=== PATIENT | female | born 2000 | race African-American/Black ===

== ENCOUNTER → 2020-06-11 10:48 | Outpatient (BNVA) | payer OTHER, SELFPAY | PROVIDERS: Visit Provider Advanced Practice Midwife ==

== ENCOUNTER → 2020-06-12 09:43 | Outpatient (BNVA) | payer OTHER, SELFPAY | PROVIDERS: Visit Provider Advanced Practice Midwife | DX: N63.10 Unspecified lump in the right breast, unspecified quadrant (principal); Z45.89 Encounter for adjustment and management of other implanted devices | CPT/HCPCS: 11982 ==

== ENCOUNTER 2020-07-18 12:51 | Outpatient (REF) | payer OTHER, SELFPAY ==
--- NOTE | ~2020-07-18 | US_ITS ---
EXAMINATION: US DIAGNOSTIC ULTRASOUND BREAST, RIGHT CLINICAL INFORMATION: 19-year-old with chronic palpable fullness outer right breast for years. No significant changes. Additional palpable areas of interest 11:00 to 12:00 position noted at clinical exam. No known family history breast cancer. No discharge. COMPARISON: Targeted right breast ultrasound 05/03/2019. TECHNIQUE: Ultrasound right breast is targeted to the areas of clinical concern outer right breast as well as 11:00-12:00 position. Grayscale imaging and color Doppler are performed without and with harmonics. Patient is able to point to the areas of concern at time of imaging. FINDINGS: There is no focal suspicious finding. There is no cystic or solid mass, architectural abnormality, duct ectasia, or edema in the soft tissue planes. Results are discussed with the patient at time of visit. US/US breast RT limited IMPRESSION: Normal study. ASSESSMENT: BI-RADS 1: Negative RECOMMENDATION: Patient should be managed based on the clinical impression. If clinically indicated, further evaluation may be considered with surgical consult.
== END 2020-07-18 12:52 | disposition home or self-care (01) ==
LOC: HO.MAMMO 12:51
PROVIDERS: Visit Provider Advanced Practice Midwife
DX: N63.10 Unspecified lump in the right breast, unspecified quadrant (principal)
CPT/HCPCS: 76642

== ENCOUNTER → 2020-08-01 11:30 | Outpatient (BNVA) | payer OTHER, SELFPAY | PROVIDERS: Visit Provider Advanced Practice Midwife ==

== ENCOUNTER 2021-04-01 08:18 | Outpatient (REF) | payer OTHER, SELFPAY ==
[2021-04-02 01:31] LABS: CT PCR NOT DETECTED (Not Detect.)
[2021-04-02 01:32] LABS: NG PCR NOT DETECTED (Not Detect.)
[2021-04-02 12:04] LABS: BV Int Neg Control Negative (Negative); BV Int Pos Control Positive (Positive)
== END 2021-04-01 08:19 | disposition home or self-care (01) ==
LOC: HO.LAB 08:18
PROVIDERS: Visit Provider Advanced Practice Midwife
DX: R10.2 Pelvic and perineal pain (principal)
CPT/HCPCS: 81003; 81025; 87480; 87491; 87510; 87591; 87660

== ENCOUNTER 2021-04-17 11:07 | Outpatient (REF) | payer OTHER, SELFPAY ==
--- NOTE | ~2021-04-17 | US_ITS ---
EXAMINATION: US PELVIS CLINICAL INFORMATION: Pain COMPARISON: None TECHNIQUE: Ultrasound of the pelvis is performed using both transabdominal and transvaginal transducers along with Doppler. Transvaginal imaging is performed due to inadequate visualization transabdominally. FINDINGS: The uterus is anteverted and measures 8 x 3 x 5.6 cm in dimension. No focal uterine lesion is seen. Endometrial thickness is normal measuring 0.8 cm. There is a small amount of fluid in the endocervical canal. The ovaries are normal-appearing. The right ovary measures 2.9 x 4.6 x 1.8 cm. The left ovary measures 2.1 x 1.2 x 1.3 cm. There is no fluid in the pelvis. US/US pelvic and transvaginal IMPRESSION: Unremarkable exam.
== END 2021-04-17 11:08 | disposition home or self-care (01) ==
LOC: HO.US 11:07
PROVIDERS: Visit Provider Advanced Practice Midwife
DX: R10.2 Pelvic and perineal pain (principal)
CPT/HCPCS: 76830; 76856

== ENCOUNTER 2021-05-01 14:44 | Outpatient (REF) | payer OTHER, SELFPAY ==
[2021-05-02 06:39] LABS: CT PCR NOT DETECTED (Not Detect.); NG PCR NOT DETECTED (Not Detect.)
[2021-05-02 11:54] LABS: BV Int Neg Control Negative (Negative); BV Int Pos Control Positive (Positive)
== END 2021-05-01 14:45 | disposition home or self-care (01) ==
LOC: HO.LAB 14:44
PROVIDERS: Visit Provider Advanced Practice Midwife
DX: Z01.411 Encounter for gynecological examination (general) (routine) with abnormal findings (principal); R10.2 Pelvic and perineal pain; N89.8 Other specified noninflammatory disorders of vagina; I10 Essential (primary) hypertension; Z20.2 Contact with and (suspected) exposure to infections with a predominantly sexual mode of transmission
CPT/HCPCS: 87480; 87491; 87510; 87591; 87660; 88142

== ENCOUNTER 2022-05-05 15:03 | Outpatient (REF) | payer OTHER, SELFPAY ==
[2022-05-06 02:15] LABS: CT PCR DETECTED (Not Detect.); NG PCR NOT DETECTED (Not Detect.)
== END 2022-05-05 15:04 | disposition home or self-care (01) ==
LOC: HO.LNP 15:03
PROVIDERS: Visit Provider Advanced Practice Midwife
DX: Z01.419 Encounter for gynecological examination (general) (routine) without abnormal findings (principal)
CPT/HCPCS: 87491; 87591; 88142

== ENCOUNTER 2022-10-10 10:52 | Outpatient (REF) | payer OTHER, SELFPAY ==
[2022-10-11 09:17] LABS: CT PCR NOT DETECTED (Not Detect.); NG PCR NOT DETECTED (Not Detect.)
[2022-10-11 12:07] LABS: BV Int Neg Control Negative (Negative); BV Int Pos Control Positive (Positive)
== END 2022-10-10 10:53 | disposition home or self-care (01) ==
LOC: HO.LNP 10:52
PROVIDERS: PCP Nurse Practitioner Family; Visit Provider Advanced Practice Midwife
DX: R10.2 Pelvic and perineal pain (principal); N89.8 Other specified noninflammatory disorders of vagina; Z20.2 Contact with and (suspected) exposure to infections with a predominantly sexual mode of transmission
CPT/HCPCS: 0353U; 87480; 87510; 87660

== ENCOUNTER 2023-07-30 14:22 | Outpatient (REF) | payer OTHER, SELFPAY ==
[2023-07-30 16:17] LABS: HCG Quantitative < 2 mIU/mL
== END 2023-07-30 14:23 | disposition home or self-care (01) ==
LOC: HO.LAB 14:22
PROVIDERS: Visit Provider Advanced Practice Midwife
DX: N93.9 Abnormal uterine and vaginal bleeding, unspecified (principal)
CPT/HCPCS: 36415; 84702

== ENCOUNTER 2024-09-26 09:51 | Outpatient (AMB) | payer BC, SELFPAY ==
--- NOTE | 2024-09-26 09:53 | MHC.PC.OV ---
Vital Signs 09/26/24 09:58 Height 5 ft Weight 199 lb BMI 38.9 BP 156/81 H Respiration 14 Pulse 76 Pulse Source Pulse Oximeter Temp 98.0 F Temp Source Temporal Artery Scan Pulse Oximetry (%) 100 Oxygen Delivery Method Room Air Intake Visit Reasons: establish care [employer] Pumper Required: No Accompanied by: Self / Same As Patient Allergies doxycycline Allergy (Mild, Verified 09/26/24 10:10) rash fluconazole [From Diflucan] Allergy (Mild, Verified 09/26/24 10:10) Rash ibuprofen Allergy (Mild, Verified 09/26/24 10:10) Stomach Upset Medication List - Last Reconciled 09/26/24 by Rosemarie Montoya PA-C albuterol sulfate 90 mcg/actuation 0 mcg inhalation Tobacco use date assessed: 09/26/24 Dental Screening Dental Screen Date: 09/26/24 Did you have a dental visit in the last 12 months?: No Did you have a dental problem in the last 6 months where you did not have access to dental care?: No Was dental information given to patient?: Patient has dentist HPI establish care HPI Details The patient is a 24-year-old female presenting with the purpose of establishing primary healthcare, alongside addressing concerns about essential hypertension and suspected thyroid disorder. She was diagnosed with hypertension in 2020 and initially treated with Amlodipine and Hydrochlorothiazide. However, unpleasant side effects such as dizziness and head sensitivity led her to forgo these treatments without trying alternatives. Additionally, the patient cites a previous indication of thyroid dysfunction at [facility], but she has not pursued comprehensive follow-up evaluations. Her menstrual history is remarkable for severe dysmenorrhea with excessive bleeding episodes requiring significant periods of rest. The condition of hormonal dysregulation is further exacerbated by prominent emotional fluctuations, prompting her interest in evaluating hormone levels. Historical interventions with Nexplanon were ceased due to unsatisfactory outcomes. Breast concerns, including the presence of unexplained lumps, prompted imaging which returned negative for abnormalities. Recent cervical health was maintained, as evidenced by a normal Pap test completed in April 2022. 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 - Functional status: Manages daily tasks but period pains affect capabilities. [facility] Medical History (Updated 09/26/24 @ 10:28 by Rosemarie Montoya PA-C) Hormone imbalance Dysmenorrhea Class 2 obesity with body mass index (BMI) of 38.0 to 38.9 in adult Establishing care with new doctor, encounter for Pneumonia Ovarian cyst Dysplasia of cervix, low grade (OMAIRA 1) Hypertension Hx of migraine headaches Family History Father Hypertension Mother Hypertension Maternal Grandmother Hypertension Paternal Grandfather Stroke Diabetes Social History Housing: House Alcohol intake: current Alcohol intake frequency: holidays/special occasions only Alcohol type: wine Patient Tobacco Use Status: Never used Tobacco Substance Use Type: Marijuana service: No Current occupational status: employed 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 1. Little interest or pleasure in doing things: not at all 2. Feeling down, depressed, or hopeless: not at all 3. Trouble falling or staying asleep, or sleeping too much: not at all 4. Feeling tired or having little energy: not at all 5. Poor appetite or overeating: not at all 6. Feeling bad about yourself - or that you are a failure or have let yourself or your family down: not at all 7. Trouble concentrating on things, such as reading the newspaper or watching television: not at all 8. Moving or speaking so slowly that other people could have noticed. Or the opposite - being so fidgety or restless that you have been moving around a lot more than usual: not at all 9. Thoughts that you would be better off or of hurting yourself in some way: not at all Total score: 0 Depression Screening Interpretation: Negative Depression Screening Done: Yes 08654 - PHQ-9 Billing: Yes Source: Developed by Drs. Senthil Arguello, Samantha Rawls, Yong Zendejas and colleagues, with an educational hernan from [employer]. Thrive Questionnaire Date Thrive assessed: 09/26/24 I am a: Patient What is your living situation today?: I have a steady place to live Within the past 12 months, did the food you bought not last and you didn't have the money to get more?: Never true Within the past 12 months, did you worry whether your food would run out before you got money to buy more?: Never true Do you have trouble paying for medicines?: No Do you have trouble getting transportation to medical appointments?: No Do you have trouble paying your heating and electricity bill?: No Do you have trouble taking care of your child, family member or friend?: No Do you have trouble with day-to-day activities such as bathing, preparing meals, shopping, managing finances, etc.?: No Are you currently unemployed and looking for a job?: No Are you interested in more education?: No Please select the resources that you would like help with: None THRIVE Score: 0 AUDIT C Alcohol Use Questionnaire (AUDIT-C) 1. How often do you have a drink containing alcohol?: Monthly or less 2. How many drinks containing alcohol do you have on a typical day when you are drinking?: 1 or 2 3. How often do you have six or more drinks on one occasion?: Never Total Score: 1 Score Reviewed/Action Taken: No ALYSON-7 AMB Questionnaire ALYSON-7 Date ALYSON - 7 assessed: 09/26/24 Feeling nervous, anxious, or on edge: 0 = Not at all Not being able to stop or control worryin = Not at all Worrying too much about different things: 0 = Not at all Trouble relaxin = Not at all Being so restless that it is hard to sit still: 0 = Not at all Becoming easily annoyed or irritable: 0 = Not at all Feeling afraid as if something awful might happen: 0 = Not at all Total ALYSON-7 score (0-4 normal; 5-9 mild; 10-14 moderate; 15-21 severe): 0 Source: Developed by Drs. Senthil Arguello, Samantha Rawls, Yong Zendejas and colleagues, with an educational hernan from [employer]. ALYSON-7 Assessment Billing ALYSON-7 Assessment Tool: ALYSON-7 Assessment 38633 Review of Systems Const Details: - Cardiovascular: Reports sensitivity leading to head disturbances while on Amlodipine. Reports dizziness with Hydrochlorothiazide. - Endocrine: Denies any palpable thyroid abnormalities or changes in neck. - Reproductive: Reports severe dysmenorrhea, heavy flow during menstruation, and bi-monthly mood disturbances. - Breast: Denies current palpable lumps following negative ultrasounds. - General: No mentions of unintentional weight loss or fatigue. Physical exam (Primary Care) Vital Signs: Last Vital Signs Temp 98.0 F 09/26/24 09:58 Pulse 76 09/26/24 09:58 Resp 14 09/26/24 09:58 BP 156/81 H 09/26/24 09:58 Pulse Ox 100 09/26/24 09:58 Oxygen Delivery Method Room Air 09/26/24 09:58 Care Plan Goal for BP management: <130/90 patient will be started on 10 mg of lisinopril and return in 1 month for blood pressure check BMI result Body Mass Index 38.9 BMI Assessment/Plan discussion: High BMI High, discussed plan: lifestyle, weight reduction, dietary, physical activity and alcohol moderation Tobacco/Smoking Status: Tobacco use Status Tobacco use date assessed 09/26/24 09/26/24 09:58 Patient Tobacco Use Status Never used Tobacco 09/26/24 10:03 Tobacco use type 09/26/24 10:03 e-Cigarette/Vaping Use 09/26/24 10:03 PHQ-9: PHQ-9 Score PHQ-9: Total score 0 09/26/24 09:58 Depression Screening Interpretation: Negative Thrive Assessment: Date of Thrive Assessment Date Thrive assessed 09/26/24 09/26/24 09:58 Const Other: Appearance: Alert. Oriented X3. No acute distress. Head: Normal external exam. Normocephalic. Atraumatic. Eyes: Pupils are equal, round, and reactive to light. Extraocular movements intact. Conjunctiva and sclera normal. Eyelids normal. Ears: External auditory canal normal. Tympanic membranes normal. Throat: Pharynx normal. Uvula midline. Moist mucous membranes. Neck: Normal inspection. Neck supple. Full range of motion. No adenopathy. Thyroid Normal. No meningeal signs. No neck mass noted. Cardiovascular: Normal heart rate and rhythm. Heart sound normal. No murmurs noted. Pulses normal throughout. Respiratory: No respiratory distress. Painless inspiration. Breath sounds normal. No wheezes/rales/rhonchi noted. Chest nontender. No accessory muscle usage noted or decreased air movement noted. Abdomen: Soft and nontender. Back: Full range of motion noted. Skin: Skin warm and dry. Normal skin color. Normal skin turgor. Rash noted on neck, sometimes forming due to heat or humidity. Extremities: No lower extremity edema. Extremities exhibit normal range of motion. Extremities nontender. Neuro: Oriented X 3. No motor deficit. No sensory deficit. Reflexes normal. Results Reviewed Results Reviewed: - Labs: CBP, CMP, inflammatory markers, hemoglobin A1c, lipid and liver panel, magnesium, B12, folate, vitamin D, and thyroid function tests ordered. - Hormone Tests: Progesterone, prolactin, testosterone, LH, estrogen, and antim?llerian hormone level tests ordered. Coding Level of Care Code New Pt Level 4 (17677) Complex EM visit Add On G2211 Diagnoses Establishing care with new doctor, encounter for Z76.89 Hypertension I10 Class 2 obesity with body mass index (BMI) of 38.0 to 38.9 in adult E66.812; Z68.38 Dysmenorrhea N94.6 Hormone imbalance E34.9 Additional Codes PHQ-9 - 58006 - PHQ-9 Billing: Yes ([id number]) ALYSON-7 Assessment Billing - ALYSON-7 Assessment Tool: ALYSON-7 Assessment 04013 ([id number]) Assessment & Plan Assessment & Plan (1) Establishing care with new doctor, encounter for: Code(s): Z76.89 - Persons encountering health services in other specified circumstances Category: Medical (2) Hypertension: Code(s): I10 - Essential (primary) hypertension Category: Medical Plan: The patient's hypertension will be managed with Lisinopril 10 mg taken daily. Lisinopril is expected to mitigate side effects previously experienced with Amlodipine and Hydrochlorothiazide. A follow-up appointment in one month will evaluate effectiveness, and hypertension monitoring will be guided through home blood pressure readings, taken two hours post-medication ingestion. (3) Class 2 obesity with body mass index (BMI) of 38.0 to 38.9 in adult: Code(s): E66.812 - Obesity, class 2; Z68.38 - Body mass index [BMI] 38.0-38.9, adult Category: Medical Plan: Patient to improve her diet and exercise regimen. Condition is chronic and stable will continue to monitor. (4) Dysmenorrhea: Code(s): N94.6 - Dysmenorrhea, unspecified Category: Medical Plan: The patient is directed to discuss possible interventions for menstrual distress with her paper sales representative. Evaluations for potential hormonal imbalances that may contribute to her symptoms are initiated through ordered hormone panels. (5) Hormone imbalance: Code(s): E34.9 - Endocrine disorder, unspecified Category: Medical Plan: Hormone level testing is proposed to identify any imbalances contributing to reported symptoms, guiding future therapeutic strategies. Plan Plan Patient was informed and verbally consented to the use of an ambient scribe for clinic note documentation during this visit. 1. Essential Hypertension The patient's hypertension will be managed with Lisinopril 10 mg taken daily. Lisinopril is expected to mitigate side effects previously experienced with Amlodipine and Hydrochlorothiazide. A follow-up appointment in one month will evaluate effectiveness, and hypertension monitoring will be guided through home blood pressure readings, taken two hours post-medication ingestion. 2. Suspected Thyroid Disorder Comprehensive thyroid function testing is ordered to follow up on concerns previously identified at [facility]. Results will guide any further care needed and refine the diagnosis. 3. Dysmenorrhea The patient is directed to discuss possible interventions for menstrual distress with her paper sales representative. Evaluations for potential hormonal imbalances that may contribute to her symptoms are initiated through ordered hormone panels. 4. Hormonal Imbalance Hormone level testing is proposed to identify any imbalances contributing to reported symptoms, guiding future therapeutic strategies. 5. History Of Breast Abnormality Monitor for any recurrence of symptoms, with continued emphasis on patient awareness and regular self-exams. Follow-up contingent on symptomatic changes. During this visit, I discussed with the patient the ongoing management of her essential hypertension, emphasizing the rationale for initiating Lisinopril while considering past adverse reactions to alternative therapies. Benefits of Lisinopril and its specific mechanism to avoid electrolyte imbalances were highlighted. For her thyroid concerns, I have ordered pertinent tests to investigate any dysfunction post-initial encounter at [facility]. Our discussion embraced her menstrual experiences and associated wellness concerns, promoting consultation with her paper sales representative to explore non-hormonal solutions. Hormonal evaluations were proposed to delineate the cause of her emotional variability and planning for continued breast health surveillance was reinforced, given the prior normal ultrasound findings. The importance of controlled follow-up and assessment after lab results and cued medication response was stressed. Orders: Orders C Reactive Protein Today Z00.00 - Encounter for general adult medical examination without abnormal findings Complete Blood Count Auto Diff Today Z00.00 - Encounter for general adult medical examination without abnormal findings Hemoglobin A1c Today Z. - Encounter for general adult medical examination without abnormal findings Liver Panel Today Z. - Encounter for general adult medical examination without abnormal findings Magnesium Today Z. - Encounter for general adult medical examination without abnormal findings Vitamin D 25-OH Total Today Z. - Encounter for general adult medical examination without abnormal findings Anti-Mullerian Hormone-Female Today Z.00 - Encounter for general adult medical examination without abnormal findings Lutenizing Hormone Today Z. - Encounter for general adult medical examination without abnormal findings Prolactin Today Z. - Encounter for general adult medical examination without abnormal findings Comprehensive [place]. Panel Fast Today Z. - Encounter for general adult medical examination without abnormal findings Erythrocyte Sedimentation Rate Today Z. - Encounter for general adult medical examination without abnormal findings Lipid Panel Today Z. - Encounter for general adult medical examination without abnormal findings Vitamin B12 and Folate Today Z. - Encounter for general adult medical examination without abnormal findings TSH reflex Free T4 Today Z. - Encounter for general adult medical examination without abnormal findings Estrogen Today Z. - Encounter for general adult medical examination without abnormal findings Testosterone, Total Today Z. - Encounter for general adult medical examination without abnormal findings Progesterone Today Z.00 - Encounter for general adult medical examination without abnormal findings Medications: New betamethasone dipropionate 0.05% 1 appl topical BID PRN 45 grams 3RF skin irritation lisinopril 10 mg PO DAILY 30 tabs 0RF I10 - Essential (primary) hypertension Patient Instructions: - Take Lisinopril 10 mg daily. Try to take it at the same time each day. - Use a home blood pressure cuff to check blood pressure two hours after medication once a day, occasionally noting results. - Go for thyroid function blood tests as soon as possible, on an empty stomach. - Schedule a follow-up appointment in one month. - Continue to monitor for any new breast changes, and consult a healthcare provider if changes occur. - Discuss dysmenorrhea and possible management options with your paper sales representative. - Keep track of any changes in menstrual symptoms or hormone levels after test results are reviewed. - Drink plenty of water when fasting for blood tests.
[2024-09-26 09:58] VITALS: BP 156/81; PULSE 76; RESP 14; TEMP 36.7; O2SAT 100; BMI 38.9
== END 2024-09-26 10:23 | disposition home or self-care (01) ==
LOC: HO.HMCSH 09:51
PROVIDERS: PCP Nurse Practitioner Family; Visit Provider Physician Assistant Medical
DX: Z76.89 Persons encountering health services in other specified circumstances (principal); I10 Essential (primary) hypertension; E66.812 Obesity, class 2; Z68.38 Body mass index [BMI] 38.0-38.9, adult; N94.6 Dysmenorrhea, unspecified; E34.9 Endocrine disorder, unspecified

== ENCOUNTER → 2024-09-26 09:51 | Outpatient (BNVA) | payer SELFPAY | PROVIDERS: PCP Nurse Practitioner Family; Visit Provider Physician Assistant Medical | DX: Z76.89 Persons encountering health services in other specified circumstances (principal); I10 Essential (primary) hypertension; E66.812 Obesity, class 2; Z68.38 Body mass index [BMI] 38.0-38.9, adult; N94.6 Dysmenorrhea, unspecified; E34.9 Endocrine disorder, unspecified | CPT/HCPCS: 96127 ==

== ENCOUNTER 2025-01-09 12:36 | Outpatient (REF) | payer OTHER, SELFPAY ==
[2025-01-09 13:01] LABS: MANUAL DIFF FLAG NO
[2025-01-09 13:23] LABS: Hematocrit 34.9 % (37.0-47.0); Hemoglobin 12.4 g/dl (12.0-16.0); Imm Gran Abs Auto 0.01 X10*3/uL (0.00-0.03); Imm Gran Pct Auto 0.2 % (0.0-0.4); Lymphocytes Absolute Auto 2.1 X10*3/uL (1.2-4.9); Mean Corpuscular HGB Conc 35.5 g/dl (31.0-35.0); Mean Corpuscular Hemoglobin 28.2 pg (27.0-33.0); Mean Corpuscular Volume 79.5 fL (80.0-98.0); NRBC Abs Auto 0.000 X10*3/uL (0.0-0.012); NRBC Pct Auto 0.0 /100WBC (0.0-0.2); Platelet Count 223 X10*3/uL (160-400); Red Blood Count 4.39 X10*6/uL (4.20-5.50); White Blood Count 5.7 X10*3/uL (4.8-10.8)
[2025-01-09 13:45] LABS: Hemoglobin A1C 101.5377 umol/L; Total Hemoglobin (HGBA1C) 3235.3978 umol/L
[2025-01-09 14:01] LABS: Alanine Aminotransferase 31 U/L (0-31); Albumin Level 3.9 g/dL (3.5-5.0); Alkaline Phosphatase 52 U/L (39-117); Anion Gap 11 (12-20); Aspartate Amino Transferase 28 U/L (5-31); Blood Urea Nitrogen 7 mg/dL (9-16); Calcium 8.7 mg/dL (8.4-10.2); Carbon Dioxide 23 mmol/L (22-29); Chloride 109 mmol/L (96-108); Cholesterol 164 mg/dL (<200); Estimated Glomerular Filt Rate > 60; HDL Cholesterol 55 mg/dL (>40); Magnesium 1.5 mg/dL (1.6-2.6); Potassium 3.7 mmol/L (3.3-5.1); Sodium 139 mmol/L (135-145); Total Protein 6.7 g/dL (6.5-8.0); Triglycerides 56 mg/dL (<150)
[2025-01-09 14:24] LABS: Folate 10.5 ng/mL (> or = 4.0); Vitamin B12 817 pg/mL (200-900)
[2025-01-12 15:52] LABS: Anti-Mullerian Hormone-Female 1.47 ng/mL (0.69-13.39)
== END 2025-01-09 12:37 | disposition home or self-care (01) ==
LOC: HO.LAB 12:36
PROVIDERS: PCP Physician Assistant Medical; Visit Provider Physician Assistant Medical
DX: Z00.00 Encounter for general adult medical examination without abnormal findings (principal); D64.9 Anemia, unspecified; Z13.21 Encounter for screening for nutritional disorder; Z13.1 Encounter for screening for diabetes mellitus; Z13.6 Encounter for screening for cardiovascular disorders
CPT/HCPCS: 36415; 80053; 80061; 80076; 82166; 82248; 82306; 82607; 82672; 82746; 83002; 83036; 83735; 84144; 84146; 84403; 84443; 85025; 85652; 86140

== ENCOUNTER 2025-01-30 14:25 | Outpatient (AMB) | payer OTHER, SELFPAY ==
--- NOTE | 2025-01-30 14:19 | MHC.PC.OV ---
Vital Signs 01/30/25 14:20 Height 5 ft Weight 194 lb BMI 37.9 BP 124/64 Respiration 14 Pulse 66 Pulse Source Pulse Oximeter Temp 98.4 F Temp Source Temporal Artery Scan Pulse Oximetry (%) 96 Oxygen Delivery Method Room Air Intake Visit Reasons: BP Check/ Headaches Licsw Required: No Accompanied by: Self / Same As Patient Allergies doxycycline Allergy (Mild, Verified 01/30/25 14:42) rash fluconazole (From Diflucan) Allergy (Mild, Verified 01/30/25 14:42) Rash ibuprofen Allergy (Mild, Verified 01/30/25 14:42) Stomach Upset Medication List - Last Reconciled 01/30/25 by Rosemarie Montoya PA-C albuterol sulfate 90 mcg/actuation 0 mcg inhalation cholecalciferol (vitamin D3) 25 mcg PO DAILY lisinopril 10 mg PO DAILY Tobacco use date assessed: 01/30/25 Dental Screening Dental Screen Date: 09/26/24 HPI BP Check/ Headaches HPI Details The patient is a 24-year-old female presenting with headaches. She describes the headaches as a constant discomfort, with some days being more severe, causing nausea and affecting her ability to work. The headaches are worsened by heat exposure during her job, despite efforts to stay hydrated and maintain electrolyte balance. The patient has a history of hypertension, with consistently high readings at home, although office measurements are normal. She is on lisinopril, prescribed after elevated blood pressure was noted previously. Laboratory tests showed mild anemia and low magnesium, which have been managed with dietary changes. Other lab results were normal, except for a slightly elevated testosterone level. 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 [facility] Medical History (Updated 01/30/25 @ 16:32 by Rosemarie Montoya PA-C) Anemia Left ankle pain Left knee pain Frequent headaches Chronic anemia Low magnesium level Cervical cancer screening (~05/06/22) Hormone imbalance Dysmenorrhea Class 2 obesity with body mass index (BMI) of 38.0 to 38.9 in adult Establishing care with new doctor, encounter for Pneumonia Ovarian cyst Dysplasia of cervix, low grade (OMAIRA 1) Hypertension Hx of migraine headaches Family History Father Hypertension Mother Hypertension Maternal Grandmother Hypertension Paternal Grandfather Stroke Diabetes Social History Housing: House Alcohol intake: current Alcohol intake frequency: holidays/special occasions only Alcohol type: wine Patient Tobacco Use Status: Never used Tobacco Substance Use Type: Marijuana service: No Current occupational status: employed 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 1. Little interest or pleasure in doing things: not at all 2. Feeling down, depressed, or hopeless: not at all 3. Trouble falling or staying asleep, or sleeping too much: not at all 4. Feeling tired or having little energy: not at all 5. Poor appetite or overeating: not at all 6. Feeling bad about yourself - or that you are a failure or have let yourself or your family down: not at all 7. Trouble concentrating on things, such as reading the newspaper or watching television: not at all 8. Moving or speaking so slowly that other people could have noticed. Or the opposite - being so fidgety or restless that you have been moving around a lot more than usual: not at all 9. Thoughts that you would be better off or of hurting yourself in some way: not at all Total score: 0 Depression Screening Interpretation: Negative Depression Screening Done: Yes 99537 - PHQ-9 Billing: Yes Source: Developed by Drs. Senthil Arguello, Samantha Rawls, Yong Zendejas and colleagues, with an educational hernan from [employer] Thrive Questionnaire Date Thrive assessed: 09/26/24 I am a: Patient What is your living situation today?: I have a steady place to live Within the past 12 months, did the food you bought not last and you didn't have the money to get more?: Never true Within the past 12 months, did you worry whether your food would run out before you got money to buy more?: Never true Do you have trouble paying for medicines?: No Do you have trouble getting transportation to medical appointments?: No Do you have trouble paying your heating and electricity bill?: No Do you have trouble taking care of your child, family member or friend?: No Do you have trouble with day-to-day activities such as bathing, preparing meals, shopping, managing finances, etc.?: No Are you currently unemployed and looking for a job?: No Are you interested in more education?: No Please select the resources that you would like help with: None THRIVE Score: 0 AUDIT C Alcohol Use Questionnaire (AUDIT-C) 1. How often do you have a drink containing alcohol?: Monthly or less 2. How many drinks containing alcohol do you have on a typical day when you are drinking?: 1 or 2 3. How often do you have six or more drinks on one occasion?: Never Total Score: 1 Score Reviewed/Action Taken: No ALYSON-7 AMB Questionnaire ALYSON-7 Date ALYSON - 7 assessed: 09/26/24 Feeling nervous, anxious, or on edge: 0 = Not at all Not being able to stop or control worryin = Not at all Worrying too much about different things: 0 = Not at all Trouble relaxin = Not at all Being so restless that it is hard to sit still: 0 = Not at all Becoming easily annoyed or irritable: 0 = Not at all Feeling afraid as if something awful might happen: 0 = Not at all Total ALYSON-7 score (0-4 normal; 5-9 mild; 10-14 moderate; 15-21 severe): 0 Source: Developed by Drs. Senthil Arguello, Samantha Rawls, Yong Zendejas and colleagues, with an educational hernan from [employer] ALYSON-7 Assessment Billing ALYSON-7 Assessment Tool: ALYSON-7 Assessment 61492 Review of Systems Const Details: - Neurological: Reports constant headaches with nausea and visual disturbances. Denies other neurological symptoms. - Cardiovascular: Reports consistently high blood pressure readings at home. Denies chest pain or palpitations. All systems reviewed & are unremarkable except as noted in HPI and below Physical exam (Primary Care) Vital Signs: Last Vital Signs Temp 98.4 F 01/30/25 14:20 Pulse 66 01/30/25 14:20 Resp 14 01/30/25 14:20 BP 124/64 01/30/25 14:20 Pulse Ox 96 01/30/25 14:20 Oxygen Delivery Method Room Air 01/30/25 14:20 Care Plan Goal for BP management: <140/90 at Goal BMI result Body Mass Index 37.9 BMI Assessment/Plan discussion: High BMI High, discussed plan: lifestyle, weight reduction, dietary, physical activity, alcohol moderation and other Tobacco/Smoking Status: Tobacco use Status Tobacco use date assessed 01/30/25 01/30/25 14:21 Patient Tobacco Use Status Never used Tobacco 01/30/25 14:21 Tobacco use type 12/29/24 09:16 PHQ-9: PHQ-9 Score PHQ-9: Total score 0 01/30/25 14:35 Depression Screening Interpretation: Negative Thrive Assessment: Date of Thrive Assessment Date Thrive assessed 09/26/24 01/30/25 14:21 Const Other: Appearance: Alert. Oriented X3. No acute distress. Head: Normal external exam. Normocephalic. Atraumatic. Eyes: Pupils are equal, round, and reactive to light. Extraocular movements intact. Conjunctiva and sclera normal. Eyelids normal. Throat: Pharynx normal. Uvula midline. Moist mucous membranes. Neck: Normal inspection. Neck supple. Full range of motion. Cardiovascular: Normal heart rate and rhythm. Heart sound normal. No murmurs noted. Pulses normal throughout. Respiratory: No respiratory distress. Painless inspiration. Breath sounds normal. No wheezes/rales/rhonchi noted. Chest nontender. No accessory muscle usage noted or decreased air movement noted. Back: Full range of motion noted. Skin: Skin warm and dry. Normal skin color. Normal skin turgor. No rashes/lesions/lacerations noted. Extremities: Extremities exhibit normal range of motion. Neuro: Oriented X 3. No motor deficit. No sensory deficit. Reflexes normal. Results Reviewed Results Reviewed: - Labs: CBC showed mild anemia with hemoglobin at 35. Magnesium was low at 1.5. Testosterone slightly elevated at 57. Other labs including kidney function, ESR, CRP, thyroid, and estrogen were normal. Coding Level of Care Code Est Pt Level 4 (03406) Complex EM visit Add On G2211 Diagnoses Frequent headaches R51.9 Hypertension I10 Anemia D64.9 Additional Codes ALYSON-7 Assessment Billing - ALYSON-7 Assessment Tool: ALYSON-7 Assessment 56216 ([id number]) PHQ-9 - 95912 - PHQ-9 Billing: Yes ([id number]) Assessment & Plan Assessment & Plan (1) Frequent headaches: Code(s): R51.9 - Headache, unspecified Category: Medical Plan: Referral to neurology for further evaluation of headaches is planned, with a CT scan of the brain ordered to exclude structural causes. Meloxicam is prescribed for symptom management until the neurology appointment. (2) Hypertension: Code(s): I10 - Essential (primary) hypertension Category: Medical Plan: The patient will return for a follow-up to reassess blood pressure, continuing current lisinopril therapy in the interim. (3) Anemia: Code(s): D64.9 - Anemia, unspecified Category: Medical Plan: Mild anemia is being monitored with dietary changes to improve magnesium levels. Plan Plan Patient was informed and verbally consented to the use of an ambient scribe for clinic note documentation during this visit. 1. Headache Referral to neurology for further evaluation of headaches is planned, with a CT scan of the brain ordered to exclude structural causes. Meloxicam is prescribed for symptom management until the neurology appointment. 2. Hypertension The patient will return for a follow-up to reassess blood pressure, continuing current lisinopril therapy in the interim. 3. Anemia Mild anemia is being monitored with dietary changes to improve magnesium levels. I discussed with the patient the plan to refer her to a neurologist for her headaches and the rationale for ordering a CT scan to rule out structural causes. We also talked about continuing her current blood pressure medication and the importance of follow-up visits to monitor her hypertension. I explained the prescription of meloxicam for headache management and dietary adjustments for her mild anemia. Orders: Orders CT head/brain wo IV con Today R51.9 - Headache, unspecified PT Evaluation and Treatment Today M25.562 - Pain in left knee, M25.572 - Pain in left ankle and joints of left foot XR knee LT 4V Today M25.562 - Pain in left knee, M25.572 - Pain in left ankle and joints of left foot XR ankle LT min 3V Today M25.562 - Pain in left knee, M25.572 - Pain in left ankle and joints of left foot Referrals Neurology Referral R51.9 - Headache, unspecified Medications: New meloxicam 15 mg PO DAILY 90 tabs 3RF metoclopramide HCl (Reglan) 10 mg PO Q6H PRN 90 tabs 3RF nausea and vomiting prednisone 40 mg (2 x 20 mg) PO DAILY 10 tabs 0RF 5 days sumatriptan succinate take 1 tab at onset of headache; if no relief may repeat 1 tab after at least 2 hrs; max = 4 tabs/24 hr PO 90 tabs 0RF amoxicillin-pot clavulanate 875-125 mg 1 tab PO BID 20 tabs 0RF 10 days Refilled lisinopril 10 mg PO DAILY 90 tabs 3RF I10 - Essential (primary) hypertension Patient Instructions: - Take meloxicam as prescribed for headache relief. - Continue current blood pressure medication and monitor readings at home. - Follow dietary recommendations to address anemia and low magnesium levels. - Return for follow-up visit to reassess blood pressure.
[2025-01-30 14:20] VITALS: BP 124/64; PULSE 66; RESP 14; TEMP 36.9; O2SAT 96; BMI 37.9
== END 2025-01-30 15:03 | disposition home or self-care (01) ==
LOC: HO.HMCSH 14:25
PROVIDERS: PCP Physician Assistant Medical; Visit Provider Physician Assistant Medical
DX: R51.9 Headache, unspecified (principal); I10 Essential (primary) hypertension; D64.9 Anemia, unspecified

== ENCOUNTER → 2025-01-30 14:25 | Outpatient (BNVA) | payer OTHER, SELFPAY | PROVIDERS: PCP Physician Assistant Medical; Visit Provider Physician Assistant Medical | DX: I10 Essential (primary) hypertension (principal); R51.9 Headache, unspecified; D64.9 Anemia, unspecified; M25.562 Pain in left knee; M25.572 Pain in left ankle and joints of left foot | CPT/HCPCS: 96127 ==

== ENCOUNTER 2025-02-01 13:32 | Outpatient (AMB) | payer OTHER, SELFPAY ==
--- NOTE | 2025-02-01 13:44 | A.OFFVIS_ITS ---
Vital Signs 02/01/25 13:45 Height 5 ft Weight 193 lb BMI 37.7 BP 120/70 Blood Pressure Location Rt brachial Position Sitting Pulse 97 Pulse Source Pulse Oximeter Pulse Oximetry (%) 97 Oxygen Delivery Method Room Air Intake Visit Reasons: INP-Headache Account Executive Required: No Accompanied by: Self / Same As Patient Allergies doxycycline Allergy (Mild, Verified 02/01/25 13:50) rash fluconazole (From Diflucan) Allergy (Mild, Verified 02/01/25 13:50) Rash ibuprofen Allergy (Mild, Verified 02/01/25 13:50) Stomach Upset Medication List - Last Reconciled 02/01/25 by Kate Rutherford, [employer] albuterol sulfate 90 mcg/actuation 0 mcg inhalation amoxicillin-pot clavulanate 875-125 mg 1 tab PO BID 10 days cholecalciferol (vitamin D3) 25 mcg PO DAILY lisinopril 10 mg PO DAILY meloxicam 15 mg PO DAILY metoclopramide HCl (Reglan) 10 mg PO Q6H PRN prednisone 40 mg (2 x 20 mg) PO DAILY 5 days sumatriptan succinate take 1 tab at onset of headache; if no relief may repeat 1 tab after at least 2 hrs; max = 4 tabs/24 hr PO HPI Comments Details: Right-handed 24-year-old female presents for new patient evaluation of headache disorder. PMH is notable for hypertension, obesity, ovarian cysts, anemia due to menorrhagia, and occasional constipation, vitamin-D deficiency, currently on ABT for PNA. Pt reports she started having headaches during her pre-teen years. She was initially told that she was reading too much and needed glasses. She eventually got glasses, but wearing them sometimes makes her headaches worse. Over time, the migraine has progressed in severity and frequency to the point where, since the beginning of 2024, she has been having almost daily migraine headache attacks. She states she stopped tolerating OTC Tylenol and NSAIDs, and Excedrin is no longer effective. She has had to miss work on multiple occasions, especially during her menstrual cycle. She has not previously seen a neurologist for her headache symptoms. Review of systems notable for: * Neurologic: Reports chronic migraines. Occasional shooting pain up either arm if lifting something heavy. * Musculoskeletal: Reports left shoulder discomfort and longstanding non- radiating neck tightness with periodic pain. Left knee and left ankle pain- has just recently been referred to PT for this. * Cardiovascular: Denies symptoms of chest pain or palpitations, although reported palpitations during migraine episodes. * Respiratory: Reports history of pneumonia, currently under treatment. * Gastrointestinal: Occasional constipation, history of GI intolerance with ibuprofen. * Genitourinary: Denies current symptoms, chronic cyclic exacerbation of migraines noted with menstruation. * Sleep: Reports , snoring, daytime sleepiness, and insomnia. * General: Reports fatigue, generalized body aches. Pertinent denials include: bruxism, kidney stones, clotting d/o's, HLD, mood d/o, weakness, recurrent numbness and tingling, that your bag that is yours or sickle cell disease. Lifestyle considerations * Typical nutrition intake: tries to eat * Typical fluid intake per day: 2 liters of water per day, including electrolytes * Caffeine use: 1-2 cups of coffee or caffeine powder per week * Sleep routine: Usual bedtime: varies based on the headache- on the headache day, she will fall asleep earlier, but then have insomnia on the days she does not have a headache. Usual wake-up time: 6-7 am * Sleep difficulties: Endorses: Snoring, Excessive daytime sleepiness, Fatigue, Apneas, Gasping Arousals, Restless sleep * Substance use: Occasional alcohol. Previous marijuana for sleep and headaches- recently stopped. 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 Family planning: in the near future. Headache questionnaire * Types of headache disorders: 1 * Age/time of onset: pre-teen * Preceding causes: initially, she was told she needed glasses * Previous work-up: none * Eye Exams: [facility]- next appt next week Typical headache characteristics * Prodrome symptoms: head [place] * Aura: vision changes, sees white circles, difficulty focusing her eyes, aching in the left eye * Pain intensity: [id number] * Location, quality, characteristics: a pulsating pain which progresses to squeezing, and moves into the left eye, islam, ear, occipital region, and neck. * Associated symptoms: photophobia, if-severe phonophobia, allodynia, nausea, vomiting, if severe-not right in space dizziness/lightheadedness, fatigue, cognitive difficulties, activity intolerance, * Atypical associated symptoms: watery eye, fast heartbeat * Postdrome: lingering symptoms * Aggravating factors during this headache: bending over, going down stairs * Triggers that provoke this headache: menstruation, heat * Time of day this headache usually occurs: Typically at the end of the day. However, the more severe attacks typically occur upon awakening in the morning. * Duration and Frequency: typically 2 days, but 3-4 days during her menstrual cycle. more headache days than not in a month * Headache impact on the patient's quality of life: severe- missing work and personal obligations Current treatment strategies * Current acute medication use/interventions: Excedrin, Dannielle, smelling alcohol * Current preventative medication use: None * Current non-pharmacological interventions: a mild headache may be alleviated with exercise. Previous treatment trials: * Ibuprofen, Tylenol- caused GI upset. * Excedrin up to 8 tabs per day- no longer effective PFSH Medical History (Updated 02/01/25 @ 14:56 by LUCIO Murcia) Anemia Left ankle pain Left knee pain Frequent headaches Chronic anemia Low magnesium level Cervical cancer screening (~05/06/22) Hormone imbalance Dysmenorrhea Class 2 obesity with body mass index (BMI) of 38.0 to 38.9 in adult Establishing care with new doctor, encounter for Pneumonia Ovarian cyst Dysplasia of cervix, low grade (OMAIRA 1) Hypertension Hx of migraine headaches Family History Father Hypertension Mother Hypertension Maternal Grandmother Hypertension Paternal Grandfather Stroke Diabetes Social History Housing: House Alcohol intake: current Alcohol intake frequency: holidays/special occasions only Alcohol type: wine Patient Tobacco Use Status: Never used Tobacco Substance Use Type: Marijuana service: No Current occupational status: employed 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 Sexual orientation: Straight/Heterosexual Gender identity: Female Cognitive needs: No Hearing needs: No Vision needs: Yes (rx glasses) Female Reproductive History Menstrual Age of Menarche: 8 Physical Exam Vital Signs: Last Vital Signs Pulse 97 02/01/25 13:45 BP 120/70 02/01/25 13:45 Pulse Ox 97 02/01/25 13:45 Oxygen Delivery Method Room Air 02/01/25 13:45 BMI result Body Mass Index 37.7 Const Orientation/consciousness: patient oriented x3 Resp Effort & Inspection: normal respiratory effort and able to speak in complete sentences Neuro Other: Mallampati stage IV No palpable forehead tenderness. Mildly limited cervical range of motion, more so on extension Right Spurling elicited discomfort along the left forehead to temporal region Left Spurling remarkable Bilateral posterior cervical tightness BUE muscle strength 5/5, however LUE testing listed at left shoulder discomfort. Left empty can test positive General: patient oriented x3 Cranial nerves: Yes CN's II-XII intact bilaterally Cognition (Neuro): normal cognition Gait exam (Neuro): Normal gait present Motor exam (neuro): 5/5 motor strength present throughout Deep tendon reflexes (DTR's): Right triceps reflex intensity grade: 2+, Left triceps reflex intensity grade: 3+, Rt Biceps (C5, C6): 2+, Left biceps reflex intensity grade: 3+, Right brachioradialis reflex intensity grade: 2+, Left brachioradialis reflex intensity grade: 3+, Right patellar reflex intensity grade: 2+ and Left patellar reflex intensity grade: 3+ Coordination: [id number] test normal, tandem gait normal and Romberg test negative Pupils: Normal pupillary reactivity/response: bilateral Psych Appearance: grossly normal Mental Status: mental status grossly normal Speech and movement: Normal speech and movement present Affect: normal affect Attitude: cooperative Thought process: Normal thought process present Assessment & Plan Assessment & Plan (1) Worsening headaches: Code(s): R51.9 - Headache, unspecified Category: Medical (2) Snoring: Code(s): R06.83 - Snoring Category: Medical (3) Sleep difficulties: Code(s): G47.9 - Sleep disorder, unspecified Category: Medical (4) Excessive daytime sleepiness: Code(s): G47.19 - Other hypersomnia Category: Medical Plan Discussion notes During the visit, I discussed the patient's chronic migraines, likely diagnosis, and management options. We delved into the concept of chronic migraine due to frequent headache days and discussed potential triggers such as menstrual cycles. We discussed preventive measures, including the use of vitamins and supplement regimens (e.g., magnesium, vitamin B2), a trial of topiramate to assess tolerance, and lifestyle adjustments such as regular exercise and improved sleep hygiene. I detailed the risks and benefits of various treatments, including sumatriptan for acute migraine relief. I emphasized the importance of early treatment for acute migraine episodes to reduce their severity and frequen cy. I recommended MRI imaging for further assessment to assess for secondary central etiologies of worsening headaches, visual aura, left-sided hyperreflexia in the setting of obesity and HTN (currently well controlled). I also discussed the possible impact of sleep apnea and advised waiting for pneumonia resolution before proceeding with the sleep study. I also advised diagnostic testing, such as X-rays, to further assess her chronic neck tightness and shoulder discomfort. We planned to monitor her response to medication and lifestyle adjustments, and I provided extensive anticipatory guidance to evaluate and modify her treatment approach continuously. Patient was informed and verbally consented to the use of an ambient scribe for clinic note documentation during this visit. You are advised to undergo the following: X-ray cervical with flexion and extension X-ray left shoulder Brain MRI with and without contrast Home sleep study Headache Management Tips Combining good self-care with some helpful tools can make managing headaches much easier. Healthy Habits ? Eat a balanced diet ? Drink enough water throughout the day, typically at least 64 oz of fluid per day ? Get regular, adequate sleep consisting of 7-9 hours of sleep per night ? Stay active with routine physical activity, typically at least 30 minutes 5 days per week ? Stay connected with friends and family, enjoy meaningful activities, and take care of your mood Tracking Your Headaches ? Write down when headaches happen, what helps, and any side effects of new treatments ? Tracking is most important after changes in your treatment plan ? Options: - Apps such as Migraine Frandy - A simple paper calendar Non-Medication Strategies ? Light sensitivity: special glasses may help (blue-light or FL-41 filters, green lenses) or green-light therapy - Avoid wearing dark sunglasses indoors ? Sound sensitivity: noise-canceling earplugs can reduce bothersome noise ? Neuromodulation devices: certain medical devices can be used alone or with medications to lower headache frequency and severity ? Neuromodulation devices: specific medical devices can be used alone or with medications to lower headache frequency and severity These strategies may not stop every attack, but over time, they can reduce headache frequency, intensity, and impact. For acute (as needed) headache treatment: It is important to take acute medications at the first sign of headache. However, please be aware that frequently using most acute medications may increase the frequency of your headache attacks, as well as make your other treatments less effective. * Discontinue sumatriptan 25 mg prn order * Increase to Sumatriptan 50-100 mg at onset of headache, may repeat in 2 hours. Max of 200 mg per 24 hours. * May use current supply of sumatriptan 25 mg tabs until supply exhausted * May take sumatriptan with OTC Tylenol 650-1,000mg every 4-6 hours, Ibuprofen (liquid gels) 600mg every 6 hours, or Naproxen (liquid gels) 440mg q 12 hrs prn. * Potential adverse effects of triptans include, but are not limited to, nausea, fatigue, chest tightness/tingling (usually passes within a few minutes), and medication overuse headaches. Previous acute migraine medication trials: Ibuprofen, naproxen, Tylenol-cause GI upset. Excedrin lost efficacy Acute migraine medication contraindications: None at this time For headache prevention medication: Preventative medications should be taken routinely as prescribed for best effect, it may take several weeks for full effect to take effect. * Start Riboflavin 400mg daily in the morning * This is generally well tolerated, however some people may experience mild abdominal discomfort from use. * This will cause your urine to become bright yellow or orange, which is expected and not of any concern. * Start Magnesium 400mg daily at bedtime * Magnesium comes in many subtypes, such as magnesium oxide, glycinate, citrate, and even try magnesium combinations. Additionally magnesium comes in many forms, including tablets, capsules, powders or even liquid formulations. There is not a specific magnesium subtype or form known to be significantly more effective than another. Rather, the magnesium subtype inform that you best tolerate, is the best version for you. * Possible side effects of magnesium include, but are not limited to, GI upset, abdominal cramping, loose stools, and diarrhea * Start Co Q10 400 mg daily in the morning * Take with a higher fat food * Trial Topiramate 25 mg daily at bedtime-to assess tolerance. * Check serum HcG prior to starting * Potential adverse effects of Topiramate, include but are not limited to fatigue, cognitive changes, paresthesias (tingling), vision changes, kidney stones. Previous migraine prevention medication trials: None Migraine prevention medication contraindications: Depakote due to female of childbearing age We will follow-up upon review of above and with a follow-up clinic visit in 3 months or sooner as needed. Orders: Orders MR head/brain wo/w con Today H53.9 - Unspecified visual disturbance, R29.2 - Abnormal reflex, R51.9 - Headache, unspecified XR shoulder LT min 2V Today M25.512 - Pain in left shoulder RT home sleep study Today G47.19 - Other hypersomnia, G47.9 - Sleep disorder, unspecified, R06.83 - Snoring HCG Quantitative Today N94.6 - Dysmenorrhea, unspecified XR cervical spine w flex/ext Today M54.2 - Cervicalgia Medications: New magnesium oxide may hold for loose stools 400 mg PO BEDTIME 90 tabs 3RF 90 days riboflavin (vitamin B2) 400 mg PO DAILY 90 tabs 3RF 90 days sumatriptan succinate 50 - 100 mg orally at onset of headache, may repeat in 2 hrs PRN; max 2 tabs per day or 4 tabs/week (may take with Ibuprofen) 12 tabs 6RF migraine headache 30 days coenzyme Q10 Daily in a.m.. Take with higher fat food 400 mg PO DAILY 90 caps 3RF 90 days topiramate 25 mg PO BEDTIME 30 tabs 3RF 30 days Discontinued sumatriptan succinate Discontinued Reason: Doctor's Order take 1 tab at onset of headache; if no relief may repeat 1 tab after at least 2 hrs; max = 4 tabs/24 hr PO 90 tabs 0RF Coding Level of Care Code New Pt Level 4 (59455) Diagnoses Worsening headaches R51.9 Snoring R06.83 Sleep difficulties G47.9 Excessive daytime sleepiness G47.19
[2025-02-01 13:45] VITALS: BP 120/70; PULSE 97; O2SAT 97; BMI 37.7
== END 2025-02-01 15:21 | disposition home or self-care (01) ==
LOC: HO.HSMS 13:33
PROVIDERS: PCP Physician Assistant Medical; Visit Provider Nurse Practitioner Family
DX: R51.9 Headache, unspecified (principal); R06.83 Snoring; G47.9 Sleep disorder, unspecified; G47.19 Other hypersomnia
CPT/HCPCS: 99204

== ENCOUNTER 2025-02-08 10:08 | Emergency (ER) | payer OTHER, SELFPAY ==
--- NOTE | ~2025-02-08 | XR_ITS ---
EXAMINATION: XR CHEST CLINICAL INFORMATION: cough COMPARISON: None available. TECHNIQUE: Frontal view of the chest was obtained. FINDINGS: No significant abnormality is noted involving the heart, lungs, mediastinum, bony thorax or soft tissues. XR/XR chest 1V IMPRESSION: Unremarkable examination. Electronically signed by: Jay Jay Montilla MD 02/08/2025 10:56 AM EDT
--- NOTE | 2025-02-08 10:09 | ECG_ITS ---
Test Reason : CP Blood Pressure : */* mmHG Vent. Rate : 76 BPM Atrial Rate : 76 BPM P-R Int : 148 ms QRS Dur : 86 ms QT Int : 376 ms P-R-T Axes : 33 51 28 degrees QTcB Int : 423 ms Normal sinus rhythm with sinus arrhythmia Normal ECG No previous ECGs available Referred By: Generic ED Physician Electronically Signed By: DAVID NASSAR
[2025-02-08 10:31] VITALS: BP 164/114; PULSE 92; RESP 16; TEMP 36.8; O2SAT 98; BMI 39.1
--- NOTE | 2025-02-08 10:45 | ED_ITS ---
HPI - General Adult General Chief complaint: Upper Respiratory Symptoms Stated complaint: CP, back pain Time Seen by Provider: 02/08/25 11:36 Source: patient Mode of arrival: ambulatory Limitations: no limitations History of Present Illness ED Provider: HPI narrative: 24-year-old not on control pills, no recent travels, recently treated for pneumonia with amoxicillin, finished antibiotics and states she is here for chest pain, did not endorse productive cough, but she is describing anterior chest pain, reproducible positional. History of well-controlled hypotension. Did not take her lisinopril in the morning. Related Data Home Medications ?Medication ?Instructions ?Recorded ?Confirmed albuterol sulfate 90 mcg/actuation 0 mcg inhalation 02/01/25 aerosol inhaler Previous Rx's ?Medication ?Instructions ?Recorded cholecalciferol (vitamin D3) 25 25 mcg PO DAILY #90 ca ps 01/09/25 mcg (1,000 unit) capsule amoxicillin 875 mg-potassium 1 tab PO BID 10 days #20 tabs 01/30/25 clavulanate 125 mg tablet lisinopril 10 mg tablet 10 mg PO DAILY #90 tabs 01/16 meloxicam 15 mg tablet 15 mg PO DAILY #90 tabs 01/16 metoclopramide HCl 10 mg tablet 10 mg PO Q6H PRN nause a and 01/30/25 (Reglan) vomiting #90 tabs prednisone 20 mg tablet 40 mg (2 x 20 mg) PO DAILY 5 days 01/30/25 #10 tabs coenzyme Q10 400 mg capsule 400 mg PO DAILY 90 days #9 0 caps 02/01/25 magnesium oxide 400 mg (241.3 mg 400 mg PO BEDTIME 90 days #90 tabs 02/01/25 magnesium) tablet riboflavin (vitamin B2) 400 mg 400 mg PO DAILY 90 days #90 tabs 02/01/25 tablet sumatriptan succinate 100 mg tablet 50 - 100 mg (0.5 - 1 x 100 mg) PO 02/01/25 .COMPLEX PRN migraine headache 30 days #12 tabs topiramate 25 mg tablet 25 mg PO BEDTIME 30 days #30 tabs 02/01/25 Allergies Allergy/AdvReac Type Severity Reaction Status Date / Time doxycycline Allergy Mild rash Verified 02/08/25 10:34 fluconazole (From Diflucan) Allergy Mild Rash Verified 02/08/25 10:34 ibuprofen Allergy Mild Stomach Verified 02/08/25 10:34 Upset Review of Systems 2 Constitutional: Constitutional: Reports as per [facility] Past Medical History Medical History (Updated 02/08/25 @ 12:07 by Humza Miles DO) Anemia Left ankle pain Left knee pain Frequent headaches Chronic anemia Low magnesium level Cervical cancer screening (~05/06/22) Hormone imbalance Dysmenorrhea Class 2 obesity with body mass index (BMI) of 38.0 to 38.9 in adult Establishing care with new doctor, encounter for Pneumonia Ovarian cyst Dysplasia of cervix, low grade (OMAIRA 1) Hypertension Hx of migraine headaches Family History Family History Father Hypertension Mother Hypertension Maternal Grandmother Hypertension Paternal Grandfather Stroke Diabetes Social History Social History Housing: House Alcohol intake: current Alcohol intake frequency: holidays/special occasions only Alcohol type: wine Patient Tobacco Use Status: Never used Tobacco Substance Use Type: Marijuana Advance Directives: No Advance Directives Information Provided: No service: No Current occupational status: employed 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 Sexual orientation: Straight/Heterosexual Gender identity: Female Cognitive needs: No Hearing needs: No Vision needs: Yes (rx glasses) Physical Exam ED Vital Signs: Vital Signs - 24 hr 02/08/25 10:31 02/08/25 12:12 02/08/25 12:19 Temperature 98.2 F 96.9 F 96.9 F Pulse Rate 92 61 61 Respiratory Rate 16 18 18 Blood Pressure 164/114 H 146/89 H 146/89 H Pulse Oximetry 98 98 98 Oxygen Delivery Method Room Air Room Air Room Air 02/08/25 12:29 Temperature 96.9 F Pulse Rate 61 Respiratory Rate 18 Blood Pressure 146/89 H Pulse Oximetry 98 Oxygen Delivery Method Room Air BMI result Body Mass Index 39.1 Const Other: * Gen: ?Overall well-appearing patient * CV: RRR, no obvious murmurs appreciated, radial pulses +2 bilaterally, * Resp: ?No wheezing rales rhonchi no stridor moving air well * Abd: ?Bowel sounds are present, no tenderness no rebound no rigidity * MSK: FROM, strength 5/5 all extremities, no lower extremity edema * Skin: Warm, dry, intact, * Neuro: ?Alert and oriented x3, moving upper and lower extremities symmetrically, no obvious facial asymmetry noted Course Course Course Narrative: RME: 24-year-old female recently treated for pneumonia presents to ED for still persistent cough with chest wall pain. Patient denies any leg swelling calf pain coughing up blood or shortness of breath. Medications Administered Discontinued Medications Generic Name Dose Route Start Last Admin Trade Name Darlin PRN Reason Stop Dose Admin Ketorolac Tromethamine 15 mg 02/08/25 12:01 02/08/25 12:29 Ketorolac Tromethamine 15 Mg/Ml Vial IM 02/08/25 12:02 Not Given ONCE ONE Medical Decision Making Medical Decision Making MDM Narrative: 12:05 PM 02/08/2025 (Dr. Humza Miles): PERC negative, chest x-ray without pneumothorax, mediastinal widening, free air or pneumothorax, ECG cardiac enzymes reassuring nothing to suspect ACS, dysrhythmia or myocarditis, physical examination likely consistent with costochondritis see discharge instructions Differential Diagnosis Differential Diagnoses: The differential diagnosis associated with the presentation includes (ACS, pneumothorax, aortic dissection, PE, Boerhaave syndrome, myocarditis) Admission/Observation Consideration of admission/observation: Escalation of care including admission/observation considered Lab Data [facility] Lab Attestation statement: I reviewed the patient's lab results. 02/08/25 10:46 02/08/25 10:46 Labs: Lab Results 02/08/25 02/08/25 Range/Units 10:39 10:46 WBC 8.8 (4.8-10.8) X10*3/uL RBC 5.00 (4.20-5.50) X10*6/uL Hgb 13.9 (12.0-16.0) g/dl Hct 38.1 (37.0-47.0) % MCV 76.2 L (80.0-98.0) fL MCH 27.8 (27.0-33.0) pg MCHC 36.5 H (31.0-35.0) g/dl RDW 13.6 (11.0-16.0) % Plt Count 260 (160-400) X10*3/uL MPV 9.8 (9.4-12.3) fL Immature Gran % (Auto) 0.3 (0.0-0.4) % Neut % (Auto) 63.2 (45-73) % Lymph % (Auto) 23.1 (20-40) % Polk % (Auto) 9.3 (2-11) % Eos % (Auto) 3.2 (0-4) % Baso % (Auto) 0.9 (0-2) % Lymph # (Auto) 2.0 (1.2-4.9) X10*3/uL Polk # (Auto) 0.8 (0.1-1.2) X10*3/uL Eos # (Auto) 0.3 (0.0-0.4) X10*3/uL Baso # (Auto) 0.1 (0.0-0.2) X10*3/uL Abs Immat Gran (auto) 0.03 (0.00-0.03) X10*3/uL Absolute Neuts (auto) 5.6 (2.0-8.3) x10*3/uL Absolute Nucleated RBC 0.000 (0.0-0.012) X10*3/uL Nucleated RBC % (auto) 0.0 (0.0-0.2) /100WBC PT 10.7 L (10.9-12.4) SEC INR 0.9 (0.9-1.1) APTT 27.0 (26.7-34.1) SEC Sodium 138 (135-145) mmol/L Potassium 3.7 (3.3-5.1) mmol/L Chloride 108 (96-108) mmol/L Carbon Dioxide 23 (22-29) mmol/L Anion Gap 11 L (12-20) BUN 8 L (9-16) mg/dL Creatinine 0.70 (0.5-1.4) mg/dL Estim Creat Clear Calc 122.2 Estimated GFR > 60 Random Glucose 87 (60-115) mg/dL Calcium 9.5 D (8.4-10.2) mg/dL Total Bilirubin 0.3 (0.0-1.0) mg/dL AST 21 (5-31) U/L ALT 25 (0-31) U/L Alkaline Phosphatase 56 (39-117) U/L Troponin I High Sens < 2.7 (<3.5-17.0) ng/L Total Protein 7.6 (6.5-8.0) g/dL Albumin 4.4 (3.5-5.0) g/dL COVID-19 (JOYA) Negative (Negative) COVID-19 Clin Com See Note Influenza Type A (JUANITA) Negative (Negative) Influenza Type B (JUANITA) Negative (Negative) Influenza A & B Note See Note Independent Interpretation I performed an independent interpretation of an: EKG (76 beats per minute otherwise normal ECG without dysrhythmia, AV lacey blocks or ST-T changes to suspect underlying ACS, my independent interpretation) and Plain X-Ray (My independent chest xray interpretation: Lungs: Lungs are clear bilaterally without evidence of focal consolidation, pleural effusion, or pneumothorax. Cardiac silhouette is unremarkable, no obvious mediastinal widening, no obvious bony abnormalities such as fractures. Impression: Normal chest X-r) Radiology Impression Discussion of test interpretation with radiology: I have reviewed the radiologist's reading. Prescription Management I considered prescription management with: Antibiotic Chronic Conditions Patient?s care impacted by: Hypertension Discharge Plan Discharge Clinical Impression: Chest pain, precordial Patient Disposition: Home, Self-Care Additional Instructions: Diagnosis and Initial Evaluation: You have been evaluated in the Emergency Department (ED) for chest pain. Based on your clinical assessment, electrocardiogram (ECG), and high-sensitivity cardiac troponin (hs-cTn) levels, you have been classified as low-risk for acute coronary syndrome (ACS) and myocardial infarction (NH). This means that your likelihood of having a heart attack or other serious heart condition in the next 30 days is very low. Other considerations were discussed with the you at bedside as well, the chest x-ray does not reveal any pneumonia, you have no risk factors for blood clots, and your physical examination is consistent with costochondritis, you can take Tylenol and Motrin as needed for pain, see my general discharge instructions as below. Follow-Up Care: ? Primary Care Provider (PCP) or Continuity Clerk: It is important to follow up with your primary care provider or table games manager within the next 14 to 30 days. This follow-up is crucial to ensure that any underlying conditions are managed appropriately and to discuss any further testing that may be needed. ? Notification: If you have an established PCP or table games manager, they have been notified of your ED visit to facilitate continuity of care. Self-Care and Monitoring: ? Medications: Continue taking any prescribed medications as directed. If you have been given new medications, ensure you understand how and when to take them. ? Activity: Resume normal activities as tolerated. Avoid strenuous activities until you have discussed them with your healthcare provider. ? Diet: Maintain a heart-healthy diet, low in saturated fats, cholesterol, and sodium. Red Flags: Seek immediate medical attention if you experience any of the following: ? New or worsening chest pain ? Shortness of breath ? Dizziness or fainting ? Pain radiating to your arm, neck, or jaw ? Sweating, nausea, or vomiting Additional Testing: In some cases, outpatient testing such as a stress test or imaging may be recommended to further evaluate your heart health. Your follow-up provider will discuss this with you if necessary. Mental Health: Anxiety and stress can contribute to chest pain. Consider discussing any concerns with your healthcare provider, who may recommend screening for anxiety or depression and appropriate management strategies. Contact Information: If you have any questions or concerns before your follow-up appointment, please contact your healthcare provider or the ED where you were evaluated. Summary: You have been discharged from the ED with a low risk of serious heart conditions. Follow the instructions above, attend your follow-up appointments, and seek immediate care if you experience any red flags. Prescriptions: No Action cholecalciferol (vitamin D3) 25 mcg (1,000 unit) capsule 25 mcg PO DAILY Qty: 90 3RF albuterol sulfate 90 mcg/actuation HFA aerosol inhaler 0 mcg inhalation sumatriptan succinate 100 mg tablet 50 - 100 mg PO .COMPLEX PRN (Reason: migraine headache) 30 Days Qty: 12 6RF Rx Instructions: 50 - 100 mg orally at onset of headache, may repeat in 2 hrs PRN; max 2 tabs per day or 4 tabs/week (may take with Ibuprofen) topiramate 25 mg tablet 25 mg PO BEDTIME 30 Days Qty: 30 3RF magnesium oxide 400 mg (241.3 mg magnesium) tablet 400 mg PO BEDTIME 90 Days Qty: 90 3RF Rx Instructions: may hold for loose stools coenzyme Q10 400 mg capsule 400 mg PO DAILY 90 Days Qty: 90 3RF Rx Instructions: Daily in a.m.. Take with higher fat food riboflavin (vitamin B2) 400 mg tablet 400 mg PO DAILY 90 Days Qty: 90 3RF meloxicam 15 mg tablet 15 mg PO DAILY Qty: 90 3RF lisinopril 10 mg tablet 10 mg PO DAILY Qty: 90 3RF metoclopramide HCl [Reglan] 10 mg tablet 10 mg PO Q6H PRN (Reason: nausea and vomiting) Qty: 90 3RF prednisone 20 mg tablet 40 mg PO DAILY 5 Days Qty: 10 0RF amoxicillin-pot clavulanate 875-125 mg tablet 1 tab PO BID 10 Days Qty: 20 0RF Referrals: Rosemarie Montoya PA-C [Primary Care Provider, Internal Medicine] - 2 weeks Clinical Impression: Chest pain, precordial Stand Alone Forms: Work/School Release Interventions: ED Discharge Assessment Last Done: 02/08/25 12:29 Discharge Date/Time: 02/08/25 12:33 Print Language: Albanian
[2025-02-08 10:51] LABS: MANUAL DIFF FLAG NO
[2025-02-08 10:53] LABS: Hematocrit 38.1 % (37.0-47.0); Hemoglobin 13.9 g/dl (12.0-16.0); Imm Gran Abs Auto 0.03 X10*3/uL (0.00-0.03); Imm Gran Pct Auto 0.3 % (0.0-0.4); Lymphocytes Absolute Auto 2.0 X10*3/uL (1.2-4.9); Mean Corpuscular HGB Conc 36.5 g/dl (31.0-35.0); Mean Corpuscular Hemoglobin 27.8 pg (27.0-33.0); Mean Corpuscular Volume 76.2 fL (80.0-98.0); NRBC Abs Auto 0.000 X10*3/uL (0.0-0.012); NRBC Pct Auto 0.0 /100WBC (0.0-0.2); Platelet Count 260 X10*3/uL (160-400); Red Blood Count 5.00 X10*6/uL (4.20-5.50); White Blood Count 8.8 X10*3/uL (4.8-10.8)
[2025-02-08 11:01] LABS: INTERNATIONAL NORM RATIO 0.9 (0.9-1.1); Prothrombin Time 10.7 SEC (10.9-12.4)
[2025-02-08 11:03] LABS: Partial Thromboplastin Time 27.0 SEC (26.7-34.1)
[2025-02-08 11:12] LABS: Alanine Aminotransferase 25 U/L (0-31); Albumin Level 4.4 g/dL (3.5-5.0); Alkaline Phosphatase 56 U/L (39-117); Anion Gap 11 (12-20); Aspartate Amino Transferase 21 U/L (5-31); Blood Urea Nitrogen 8 mg/dL (9-16); Calcium 9.5 mg/dL (8.4-10.2); Carbon Dioxide 23 mmol/L (22-29); Chloride 108 mmol/L (96-108); Creatinine Clr Calc Pharmacy 122.2; Estimated Glomerular Filt Rate > 60; Potassium 3.7 mmol/L (3.3-5.1); Sodium 138 mmol/L (135-145); Total Protein 7.6 g/dL (6.5-8.0)
[2025-02-08 11:20] LABS: COVID-19 Test Negative (Negative); IDNOW Serial# 08D9AD1C
[2025-02-08 11:21] LABS: Troponin-I High Sensitivity < 2.7 ng/L (<3.5-17.0)
[2025-02-08 12:12] VITALS: BP 146/89; PULSE 61; RESP 18; TEMP 36.1; O2SAT 98
[2025-02-08 12:19] VITALS: BP 146/89; PULSE 61; RESP 18; TEMP 36.1; O2SAT 98
[2025-02-08 12:21] LABS: IDNOW Serial# 08D9AD1C; Influenza B2 Negative (Negative)
[2025-02-08 12:29] VITALS: BP 146/89; PULSE 61; RESP 18; TEMP 36.1; O2SAT 98
== END 2025-02-08 12:33 | disposition home or self-care (01) ==
PROVIDERS: Physician Assistant; Emergency Provider Emergency Medicine; PCP Physician Assistant Medical
DX: R07.89 Other chest pain (principal); M54.50 Low back pain, unspecified; Z79.899 Other long term (current) drug therapy; Z11.52 Encounter for screening for COVID-19
CPT/HCPCS: 36415; 71045; 80053; 84484; 85025; 85610; 85730; 87502; 87635; 93005; 99283; 99284

== ENCOUNTER → 2025-02-08 10:09 | Outpatient (BNV) | payer OTHER, SELFPAY | PROVIDERS: Emergency Provider Emergency Medicine; PCP Physician Assistant Medical; Visit Provider Internal Medicine | DX: R07.89 Other chest pain (principal) | CPT/HCPCS: 93010 ==

== ENCOUNTER → 2025-02-08 10:45 | Outpatient (BNV) | payer OTHER, SELFPAY | PROVIDERS: PCP Physician Assistant Medical; Visit Provider Radiology Diagnostic Radiology | DX: R05.9 Cough, unspecified (principal) | CPT/HCPCS: 71045 ==

== ENCOUNTER 2025-02-17 15:55 | Outpatient (REF) | payer OTHER, SELFPAY ==
--- NOTE | ~2025-02-17 | MR_ITS ---
EXAMINATION: MR BRAIN WITHOUT THEN WITH IV CONTRAST HISTORY: R51.9 - Headache, unspecified TECHNIQUE: Sagittal T1, and axial T1, FLAIR, T2, gradient echo, and diffusion weighted MR images of the brain were obtained. Subsequently, axial and coronal T1-weighted images were obtained after the administration of intravenous gadolinium. 9 mL Gadavist was administered. COMPARISON: There are no prior studies available for comparison. FINDINGS: The pituitary is normal in size. The cerebellar tonsils are normally located. The brain parenchyma is unremarkable, demonstrating normal packer/white differentiation. No foci of abnormal signal intensity are identified. The ventricular system is normal in size and configuration. There is no mass effect or midline shift. No intra or extra-axial fluid collections are identified. There are no foci of restricted diffusion. There is no abnormal enhancement. Normal vascular flow voids are noted in the basilar and carotid arteries. The visualized paranasal sinuses are clear. There is adenoidal hypertrophy. MR/MR head/brain wo/w con IMPRESSION: 1. Unremarkable MRI of the brain without and with contrast. 2. Adenoidal hypertrophy. Electronically signed by: Senthil Anguiano MD 02/20/2025 07:38 AM EDT
== END 2025-02-17 15:56 | disposition home or self-care (01) ==
LOC: HO.MRI 15:55
PROVIDERS: PCP Physician Assistant Medical; Visit Provider Nurse Practitioner Family
DX: R51.9 Headache, unspecified (principal); H53.9 Unspecified visual disturbance; R29.2 Abnormal reflex
CPT/HCPCS: 70553; A9585

== ENCOUNTER → 2025-02-17 15:55 | Outpatient (BNV) | payer OTHER, SELFPAY | PROVIDERS: PCP Physician Assistant Medical; Visit Provider Radiology Diagnostic Radiology | DX: R51.9 Headache, unspecified (principal); J35.2 Hypertrophy of adenoids | CPT/HCPCS: 70553 ==

== ENCOUNTER 2025-02-20 11:50 | Outpatient (REF) | payer OTHER, SELFPAY | END 2025-02-20 11:51 | disposition home or self-care (01) | LOC: HO.LAB 11:50 | PROVIDERS: Absent Provider Nurse Practitioner Family; PCP Physician Assistant Medical; Visit Provider Physician Assistant Medical | DX: N94.6 Dysmenorrhea, unspecified (principal); Z32.00 Encounter for pregnancy test, result unknown | CPT/HCPCS: 36415; 84702 ==

== ENCOUNTER → 2025-04-17 09:10 | Outpatient (REF) | payer OTHER, SELFPAY ==
--- OUTSIDE RECORDS SUMMARY | 2025-04-14 10:30 | XMS_ITS | Encounter Summary ---
Author Organization [facility] Address [address] [place] [address] Phone Care Team Providers Care Rv Technician Name Role Phone Pcp, Unknown Primary Care Provider Unavailabl e Reason for Visit * Reason Comments New Patient Annual Exam Encounter Details Date Type Department Care Team (Latest Contact Info) Description 04/14/2025 10:30 AM EST Office Visit [facility] [address] [place] [address] Amaris Rosas MD [address], [address] [place] [address] [email or web address] Encounter for gynecological examination without abnormal finding (Primary Dx) Social History Tobacco Use Types Packs/Day Years Used Date Smoking Tobacco: Never Smokeless Tobacco: Never Tobacco Cessation:Counseling Given: Not Answered Alcohol Use Standard Drinks/Week Comments Yes 0 (1 standard drink = 0.6 oz pur e alcohol) rare Education Answer Date Recorded Are you interested in more education? Not on daly e 02/23/2025 Are you concerned about learning? Not on file 02/23/2025 No 02/23/2025 No 02/23/2025 Digital Access Answer Date Recorded No 02/23/2025 No 02/23/2025 Reliable internet access at home? Not on file 02/23/2025 Device with a working camera? Not on file Comments No Sex and Gender Information Value Date Recorded Sex Assigned at Not on file Legal Sex Female 1:18 PM EDT Gender Identity Not on file Sexual Orientation Not on file documented as of this encounter Last Filed Vital Signs Vital Sign Reading Time Taken Comments Blood Pressure 134/84 04/14/2025 10:33 AM EST Pulse - - Temperature - - Respiratory Rate - - Oxygen Saturation - - Inhaled Oxygen Concentration - - Weight 90.3 kg (199 lb) 04/14/2025 10:33 AM EST Height 157.5 cm (5' 2 ) 04/14/2025 10:33 AM EST Body Mass Index 36.4 04/14/2025 10:33 AM EST documented in this encounter Progress Notes * Jaclyn Baugh MA - 04/14/2025 10:30 AM EST Does the patient agree to a scientific photographer?: Yes Procedure performed requiring scientific photographer: Physical exam/inspection of internal or external genital; physical exam/inspection of breast Log Preparer present for procedure:: Yes * Amaris Rosas MD - 04/14/2025 10:30 AM EST Office note: Annual Exam Encounter Date: 04/14/2025 HPI: Valentina Landis is a 24 y.o. who presents for routine annual exam. Patient's last menstrual period was 03/21/2025 (exact date). Review of Systems - General ROS: negative Psychological ROS: negative Allergy and Immunology ROS: negative Hematological and Lymphatic ROS: negative Endocrine ROS: negative Breast ROS: negative for breast lumps Respiratory ROS: no cough, shortness of breath, or wheezing Cardiovascular ROS: no chest pain or dyspnea on exertion Gastrointestinal ROS: no abdominal pain, change in bowel habits, or black or bloody stools Genito-Urinary ROS: no dysuria, trouble voiding, or hematuria Musculoskeletal ROS: negative Neurological ROS: negative Dermatological ROS: negative Health Maintenance and Preventative Care: There is no immunization history on file for this patient. Obstetric and Gynecologic History OB History Para Term AB Living 0 0 0 0 0 0 SAB IAB Ectopic Multiple Live Births 0 0 0 0 0 Menstrual History Patient's last menstrual period was 03/21/2025 (exact date). Age of Onset: 8 Period Pattern: Regular Period Cycle (Days): 25-35 Period Duration (Days): 3-10 Menstrual Flow: Heavy Menstrual Control: Maxi pad, Tampon Dysmenorrhea: (!) Severe Dysmenorrhea Symptoms: Cramping, Throbbing, Nausea, Headache, Diarrhea, Breast Tenderness, Mood Swings, Acne Past Histories: There is no problem list on file for this patient. Past Medical History: Diagnosis Date Essential (primary) hypertension Migraine Ovarian cyst No past surgical history on file. Family History Problem Relation Age of Onset Hypertension Father Hypertension Mother Polycystic ovary syndrome Mother Endometriosis Mother No Known Problems Half-Brother No Known Problems Half-Brother No Known Problems Half-Sister No Known Problems Half-Sister No Known Problems Half-Sister No Known Problems Half-Sister No Known Problems Half-Sister No Known Problems Half-Sister No Known Problems Half-Sister Social History Socioeconomic History Marital status: Spouse name: Not on file Number of children: Not on file Years of education: Not on file Highest education level: Not on file Occupational History Not on file Tobacco Use Smoking status: Never Smokeless tobacco: Never Vaping Use Vaping status: never used Substance and Sexual Activity Alcohol use: Yes Comment: rare Drug use: Yes Types: Marijuana Sexual activity: Yes Partners: Male control/protection: None Other Topics Concern Not on file Social History Narrative Not on file Allergies Allergen Reactions Nsaids (Non-Steroidal Anti-Inflammatory Drug) Nausea and/or Vomiting GI issues, told to avoid Current Outpatient Medications: lisinopril (PRINIVIL,ZESTRIL) 10 MG tablet, Take 10 mg by mouth daily., Disp: , Rfl: , Last Dispense: Unknown (patient-reported) SUMAtriptan (IMITREX) 50 MG tablet, Take 50 mg by mouth once as needed for migraine. Can repeat dose in 2 hours if needed. Do not exceed 2 doses in a 24 hour period. Max dose 200mg/ day, Disp: , Rfl:, Last Dispense: Unknown (patient-reported) Physical exam: Blood pressure 134/84, height 157.5 cm (5' 2 ), weight 90.3 kg (199 lb), last menstrual period 03/21/2025. Gen: Alert, cooperative. Well-appearing on today's exam HEENT: head normocephalic without obvious deformity. Lung: normal respiratory effort Breast: Normal appearance, no masses or tenderness, no nipple retraction or dimpling bilaterally. No axillary or supraclavicular lymphadenopathy. Abdomen: Soft,non-tender. Extremities: no calf tenderness, discoloration or edema, atraumatic without deformity Skin: Skin color, texture, turgor normal. No rashes or lesions Psych: Mood and affect appropriate. Pelvic: External Genitalia: Normal architecture, without lesions. Vagina: Mucosa is pink with normal rugae. No abnormal discharge or lesions. Cervix: Normal appearance, without discharge or lesions. No cervical motion tenderness. Pap smear obtained. Uterus: Normal size and shape. Non-tender. Mobile Adnexa: No adnexal masses or tenderness bilaterally. Perianal area without lesions Assessment/Plan: 24 y.o. with normal annual exam. >Screening for sexually transmitted infections -Gonorrhea/Chlamydia testing collected >Contraception declined > Health Maintenance and Screening -Reviewed ASCCP guidelines. Pap smear collected -Reviewed breast self awareness. -Continue to follow with PCP for general medical care, immunizations Problem List Items Addressed This Visit None Visit Diagnoses Encounter for gynecological examination without abnormal finding - Primary Relevant Orders Cervical Cancer Screening Chlamydia trachomatis and Neisseria gonorrhoeae Nucleic Acid Amplification New Prescriptions No medications on file Amaris Rosas MD documented in this encounter Plan of Treatment Upcoming Encounters Date Type Department Care Team (Late st Contact Info) Description 05/23/2025 9:30 AM EST Office Visit [facility] [address] [place] [address] [place] [address] Amaris Rosas MD [address] [place] [address], [address] [place] [address] [email or web address] Pending Results Name Type Priority Associated Diagnoses Date /Time Cervical Cancer Screening Pathology and Cytology Routine Encounter for gynecological examination without abnormal finding 04/14/2025 11:03 AM EST Chlamydia trachomatis and Neisseria gonorrhoeae Nucleic Acid Amplification Microbiology Routine Encounter for gynecological examination without abnormal finding 04/14/2025 11:03 AM EST Pap Test Pathology and Cytology Routine Encounter for gynecological examination without abnormal finding 04/14/2025 11:03 AM EST Scheduled Orders Name Type Priority Associated Diagnoses Orde r Schedule Chlamydia trachomatis and Neisseria gonorrhoeae Nucleic Acid Amplification Microbiology Routine Encounter for gynecological examination without abnormal finding Expected: 04/14/2025, Expires: 04/14/2026 documented as of this encounter Visit Diagnoses Diagnosis Encounter for gynecological examination without abnormal finding- Primary documented in this encounter Care Teams Rv Technician Relationship Specialty Start Date End Date Pcp, Unknown PCP - General 02/21/25 documented as of this encounter Additional Source Comments The information contained in this document represents components of the legal health record. It is not the complete legal health record.[facility]
--- NOTE | ~2025-04-17 | XR_ITS ---
EXAMINATION: XR ANKLE, LEFT CLINICAL INFORMATION: M25.562 - Pain in left knee COMPARISON: None available. TECHNIQUE: AP, lateral, and mortise views of the left ankle. FINDINGS: No fracture. Alignment is anatomic. No erosions. Joint spaces are maintained. Ankle mortise is congruent. No talar OCD. Posterior calcaneal enthesopathy. No abnormal soft tissue calcification XR/XR ankle LT min 3V IMPRESSION: No acute osseous findings Electronically signed by: Mihir Harris MD 04/17/2025 11:43 AM [facility]
--- NOTE | ~2025-04-17 | XR_ITS ---
EXAMINATION: XR CERVICAL SPINE CLINICAL INFORMATION: M54.2 - Cervicalgia COMPARISON: None available. TECHNIQUE: 7views of the cervical spine, inclusive of flexion and extension and bilateral oblique views, were obtained. FINDINGS: Bone alignment is normal. No fracture or dislocation. Normal disc spaces. No instability on flexion and extension views. Neural foramen are patent. Prevertebral soft tissues are normal. XR/XR cervical spine w flex/ext IMPRESSION: Unremarkable examination. Electronically signed by: Vera Hall MD 04/17/2025 12:15 PM [facility]
--- NOTE | ~2025-04-17 | XR_ITS ---
EXAMINATION: XR SHOULDER, LEFT CLINICAL INFORMATION: M25.512 - Pain in left shoulder COMPARISON: None available. TECHNIQUE: AP external rotation, Grashey, scapular Y, and axillary views of the left shoulder. FINDINGS: Dysmorphic appearance of the superior aspect of the acromion, probably related to remote trauma. Acromioclavicular joint space is maintained. Glenohumeral joint space is maintained. No evidence of acute fracture or dislocation. No suspicious bony lesions. No abnormal soft tissue calcification. XR/XR shoulder LT min 2V IMPRESSION: No acute osseous findings. Dysmorphic appearance of the acromion, probably related remote trauma. Clinically correlate. Electronically signed by: Mihir Harris MD 04/17/2025 11:40 AM [facility]
--- NOTE | ~2025-04-17 | XR_ITS ---
EXAMINATION: XR KNEE, LEFT CLINICAL INFORMATION: M25.562 - Pain in left knee COMPARISON: None available. TECHNIQUE: Four views of the left knee. FINDINGS: No fracture or joint effusion. Alignment is anatomic. Joint spaces are maintained. Mild lateral patellar tilt on the sunrise view. No abnormal soft tissue calcification. XR/XR knee LT 4V IMPRESSION: No acute findings Electronically signed by: Mihir Harris MD 04/17/2025 11:41 AM [email or web address]
--- OUTSIDE RECORDS SUMMARY | 2025-04-17 10:09 | XMS_ITS | Clinical Summary ---
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 01/30/2025 Active SUMAtriptan (IMITREX) 50 MG tablet Take 50 mg by mouth once as needed for migraine. Can repeat dose in 2 hours if needed. Do not exceed 2 doses in a 24 hour period. Max dose 200mg/ day Active Encounters Date Type Department Care Team Description 04/14/2025 10:30 AM EST Office Visit [facility] [address] [place] [address] Amaris Felix MD Encounter for gynecological examination without abnormal finding (Primary Dx) from Last 3 Months Family History Medical History Relation Comments Hypertension Father No Known Problems Half-Brother 1 No Known Problems Half-Brother 2 No Known Problems Half-Sister 1 No Known Problems Half-Sister 2 No Known Problems Half-Sister 3 No Known Problems Half-Sister 4 No Known Problems Half-Sister 5 No Known Problems Half-Sister 6 No Known Problems Half-Sister 7 Endometriosis Mother Hypertension Mother Polycystic ovary syndrome Mother Relation Status Comments Father Alive Half-Brother 1 Alive Half-Brother 2 Alive Half-Sister 1 Alive Half-Sister 2 Alive Half-Sister 3 Alive Half-Sister 4 Alive Half-Sister 5 Alive Half-Sister 6 Alive Half-Sister 7 Alive Mother Alive Social History Tobacco Use Types Packs/Day Years [...] on file Sexual Orientation Not on file Last Filed Vital Signs Vital Sign Reading Time Taken Comments Blood Pressure 134/84 04/14/2025 10:33 AM EST Pulse - - Temperature - - Respiratory Rate - - Oxygen Saturation - - Inhaled Oxygen Concentration - - Weight 90.3 kg (199 lb) 04/14/2025 10:33 AM EST Height 157.5 cm (5' 2 ) 04/14/2025 10:33 AM EST Body Mass Index 36.4 04/14/2025 10:33 AM EST Plan of Treatment Upcoming Encounters Date Type Department Care Team (Late st Contact Info) Description 05/23/2025 9:30 AM EST Office Visit [facility] [address] [place] [address] [place] [address] Amaris Rosas MD [address] [place] [address], [address] [place] [address] [email or web address] Health Maintenance Due Date Last Done Comments Adult Td,Tdap Booster 1998 CREATININE LEVEL 1998 POTASSIUM LEVEL 1998 DEPRESSION SCREENING 2010 HPV VACCINES (1 - 3-dose series) 2013 HEPATITIS C SCREENING 2016 HIV ONE-TIME SCREENING (18-6 5 YEARS) 2016 PAP SMEAR 08/31/2019 INFLUENZA VACCINE (#1) 2024 COVID-19 VACCINE (2024-2 6 season) 2025 SMOKING STATUS SCREENING (On ce After 26 Yrs) Completed 04/14/2025 HEPATITIS A VACCINES Aged Out No long er eligible based on patient's age to complete this topic HIB VACCINES Aged Out No longer eligi ble based on patient's age to complete this topic MENINGOCOCCAL VACCINES (ACWY) Aged Out No longer eligible based on patient's age to complete this topic MENINGOCOCCAL VACCINES (B) Aged Out N o longer eligible based on patient's age to complete this topic PNEUMOCOCCAL VACCINES (0-49 years) Aged Out No longer eligible based on patient's age to complete this topic Medical Devices Not on file Insurance [facility] POS EPO [facility] POS EPO [facility] POS EPO [facility] POS EPO [facility] POS EPO [facility] POS EPO 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 It is not the complete legal health record.[facility]
== END ==
LOC: HO.SL 09:10
PROVIDERS: Absent Provider Physician Assistant Medical; PCP Physician Assistant Medical; Visit Provider Nurse Practitioner Family
DX: G47.19 Other hypersomnia (principal); R06.83 Snoring; M25.512 Pain in left shoulder; M54.2 Cervicalgia; M25.562 Pain in left knee; M25.572 Pain in left ankle and joints of left foot
CPT/HCPCS: 72052; 73030; 73564; 73610

== ENCOUNTER → 2025-04-17 09:20 | Outpatient (BNV) | payer OTHER, SELFPAY | PROVIDERS: Absent Provider Physician Assistant Medical; PCP Physician Assistant Medical; Visit Provider Radiology Diagnostic Ultrasound | DX: M54.2 Cervicalgia (principal); M25.562 Pain in left knee; M25.512 Pain in left shoulder; M25.572 Pain in left ankle and joints of left foot | CPT/HCPCS: 72052; 73030; 73564; 73610 ==

== ENCOUNTER → 2025-04-24 09:26 | Outpatient (BNV) | payer OTHER, SELFPAY | PROVIDERS: Absent Provider Physician Assistant Medical; PCP Physician Assistant Medical; Visit Provider Psychiatry & Neurology Neurology | DX: R06.83 Snoring (principal) | CPT/HCPCS: 95806 ==

== ENCOUNTER 2025-05-08 13:02 | Outpatient (AMB) | payer OTHER, SELFPAY ==
[2025-05-08 13:04] VITALS: BP 120/84; PULSE 80; O2SAT 98; BMI 39.6
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
--- OUTSIDE RECORDS SUMMARY | 2025-05-08 19:00 | XMS_ITS | Clinical Summary ---
Author Organization [facility] Address [address] [place] [address] Phone Care Team Providers Care Chain Person Name Role Phone Pcp, Unknown Primary Care [...] Visit [facility] [address] [place] [address] Amaris Felix MD Encounter for gynecological examination [...] Office Visit [facility] [address] [place] [address] [place] [address] Amaris Rosas MD [address] [place] [address], [address] [place] [address] [email or web address] Due Date Last Done Comments Adult Td,Tdap Booster 1998 CREATININE LEVEL 1998 POTASSIUM LEVEL 1998 DEPRESSION SCREENING 2010 HPV VACCINES (1 - 3-dose series) 2013 HEPATITIS C SCREENING 2016 HIV ONE-TIME SCREENING (18-6 5 YEARS) 2016 INFLUENZA VACCINE (#1) 2024 COVID-19 VACCINE (2024-2 6 season) 2025 PAP SMEAR 04/14/2028 04/14/2025 SMOKING STATUS SCREENING (On ce After 26 [...] this topic Medical Devices Not on file Procedures Procedure Name Priority Date/Time Associated Diagnosis Comments PAP TEST Routine 04/14/2025 11:03 AM EST Encounter for gynecological examination without abnormal finding CERVICAL CANCER SCREENING Routine 04/14/2025 11:03 AM EST Encounter for gynecological examination without abnormal finding CHLAMYDIA TRACHOMATIS AND NEISSERIA GONORRHOEAE NUCLEIC ACID DETECTION Routine 04/14/2025 11:03 AM EST Encounter for gynecological examination without abnormal finding from Last 3 Months Results * Chlamydia trachomatis and Neisseria gonorrhoeae Nucleic Acid Amplification (04/14/2025 11:03 AM EST) N.gonorrhoeae, AMP Not Detected Not Detected 04/17/2025 10:37 AM [facility] Comment:This test is not rec ommended for evaluation of suspected sexual abuse or for other medico-legal indications This assay should not be used to determine therapeutic success as DNA may persist after appropriate antimicrobial therapy. This test has not been evaluated in patients younger than 14 years of age. Penile and Urethral specimen are not approved specimen types, interpret results with caution. C.trachomatis, AMP Not Detected Not Detected 04/17/2025 10:37 AM [facility] Comment:This test is not rec ommended for evaluation of suspected sexual abuse or for other medico-legal indications This assay should not be used to determine therapeutic success as DNA may persist after appropriate antimicrobial therapy. This test has not been evaluated in patients younger than 14 years of age. Penile and Urethral specimen are not approved specimen types, interpret results with caution. Swab (Cervix) Non-Blood Collection / Unknown 04/14/2025 11:03 AM EST 04/14/2025 11:03 AM EST [facility] - 04/17/2025 10:[address]/NG Assay performance has not been evaluated on patients less than 14 years of age Amaris Rosas MD LAB GENERAL OR DERABLES Final Result [facility] [address] [place] [address] * Pap Test (04/14/2025 11:03 AM EST) Final Diagnosis A. PAP TEST: CERVIX SPECIMEN ADEQUACY: Satisfactory for evaluation; transformation zone present. INTERPRETATION: Negative For Intraepithelial Lesion or Malignancy. OTHER FINDINGS: Bacterial vaginosis. 04/26/2025 9:44 AM [facility] at 0944 EST Pap Methodology This specimen was successfully pre-screened using the [employer] ThinPrep Imaging System. Selected villarreal from the armored car driver were reviewed by a Teller Supervisor. If indicated, this case was reviewed by a Pathologist. The Pap test is a screening test primarily for detecting cervical Squamous Cell Carcinoma and its precursors. The test has an inherent but low probability of error, with liquid-based methods having a reported false negative rate of about 2%. Regular sampling and follow-up of unexplained clinical signs and symptoms are recommended to minimize false negative results. 04/26/2025 9:44 AM [facility] Clinical History ICD-10: Encounter for gynecological examination without abnormal finding 04/26/2025 9:44 AM [facility] LMP? Exact Date 04/26/2025 9:44 AM [facility] LMP 03/21/2025 04/26/2025 9:44 AM [facility] Gross Description A. PAP TEST: CERVIX: 1 Preservcyt vial received labeled with two patient identifiers. 1 ThinPrep slide prepared. 04/26/2025 9:44 AM [facility] A. Adequacy Satisfactory for evaluation; transformation zone present. 04/26/2025 9:44 AM EST [facility] A. Interpretation Negative For Intraepithelial Lesion or Malignancy. 04/26/2025 9:44 AM EST [facility] A. Other Findings Bacterial vaginosis. 04/26/2025 9:44 AM EST [facility] Pap Collection (Cervix) 04/14/2025 11:03 AM EST 04/14/2025 11:03 AM EST us Amaris Rosas MD LAB CYTOLOGY O RDERABLES Final Result [facility] [address] [place] [address] from Last 3 Months Insurance [facility]PO [facility] EPO [facility] POS EPO [facility] POS EPO Care Teams Chain Person Relationship Specialty Start Date End Date Pcp, Unknown PCP - General 02/21/25 Additional Source Comments The information contained in this document represents components of the legal health record. It is not the complete legal health record.[facility]
== END 2025-05-08 14:09 | disposition home or self-care (01) ==
LOC: HO.HSMS 13:03
PROVIDERS: PCP Physician Assistant Medical; Visit Provider Nurse Practitioner Family
DX: G43.109 Migraine with aura, not intractable, without status migrainosus (principal); R06.83 Snoring; G47.9 Sleep disorder, unspecified; J35.2 Hypertrophy of adenoids; R13.10 Dysphagia, unspecified; Z71.89 Other specified counseling
CPT/HCPCS: 99214